=== PATIENT | male | born 1965 | race American Indian/Alaskan Native ===

== ENCOUNTER 2024-08-02 13:06 | Inpatient (IN) | payer MEDICARE, MEDICAID ==
[2024-08-02] MEDS ORDERED: Sodium Chloride 0.9% 10 ML Syringe FLUSH PRN (13:07)
[2024-08-02] MEDS: Sodium Chloride 0.9% 1,000 ML IV ONE (13:21)
[2024-08-02] MEDS: Ondansetron 4 MG/2 ML SDV IVPUSH ONE ×2 (13:21→14:04)
[2024-08-02 13:24] LABS: BASOPHILS PERCENT AUTO 0.2 % (0.0-1.0); EOSINOPHILS PERCENT AUTO 0.8 % (1.0-3.0); HEMATOCRIT 25.2 % (40.0-54.0); LYMPHOCYTES PERCENT AUTO 4.3 % (20.5-50.1); MEAN CORPUSCULAR HEMOGLOBIN 19.4 pg (27.0-34.0); MEAN CORPUSCULAR HGB CONC 27.8 g/dL (33.0-35.0); MONOCYTES PERCENT AUTO 2.8 % (2-8); NEUTROPHILS PERCENT AUTO 91.9 % (42.2-75.2); PLATELET COUNT,PLT 418 10^3/uL (150-450); WHITE BLOOD CELL COUNT,WBC 12.7 10^3/uL (5.0-10.0)
[2024-08-02 13:26] LABS: APPEARANCE,URINE TURBID (CLEAR); BILIRUBIN,URINE NEGATIVE (NEGATIVE); COLOR,URINE YELLOW (YELLOW); GLUCOSE,URINE NEGATIVE (NEGATIVE); KETONES,URINE 15 (NEGATIVE); LEUKOCYTE ESTERASE,URINE LARGE (NEGATIVE); NITRITE,URINE NEGATIVE (NEGATIVE); OCCULT BLOOD,URINE LARGE (NEGATIVE); PROTEIN,URINE >=300 (NEGATIVE); UROBILINOGEN,URINE 0.2 mg/dL (0.2-1.0)
[2024-08-02 13:33] LABS: WBC,URINE PACKED /HPF (0-5/HPF)
[2024-08-02 13:34] LABS: BACTERIA,URINE MODERATE /HPF (0-FEW/HPF); EPITHELIAL CELLS,URINE OCCASIONAL /HPF (NOT SEEN)
[2024-08-02 13:43] LABS: A/G RATIO 0.47; ALANINE AMINOTRANSFERASE,ALT 13 U/L (16-63); ALBUMIN 2.6 g/dL (3.4-5.0); ALKALINE PHOSPHATASE 112 U/L (46-116); ANION GAP 14.3 mEq/L (7-13); ASPARTATE AMNIOTRANSFERASE,AST 26 U/L (15-37); BILIRUBIN TOTAL 0.3 mg/dL (0.2-1.0); BLOOD UREA NITROGEN,BUN 31 mg/dL (7-18); BUN/CREATININE RATIO 11.6 (No establ ref range); C-REACTIVE PROTEIN 23.02 ng/dL (<=0.50); CARBON DIOXIDE,CO2 25 mmol/L (21-32); CHLORIDE,CL 100 mmol/L (98-107); CREATININE 2.67 mg/dL (0.70-1.30); ESTIMATED GFR 27 mL/min (>=60); GLUCOSE RANDOM 102 mg/dL (70-99); MAGNESIUM 1.3 mg/dL (1.8-2.4); POTASSIUM,K 4.3 mmol/L (3.5-5.1); PROTEIN TOTAL,TP 8.1 g/dL (6.4-8.2); SODIUM,NA 135 mmol/L (136-145)
[2024-08-02 14:04] LABS: LACTIC ACID 1.7 mmol/L (0.4-2.0)
[2024-08-02] MEDS: Ciprofloxacin in D5W 400 MG in Premix Bag 1 BAG IV ONE (14:35)
[2024-08-02] MEDS ORDERED: Acetaminophen 325 MG Tab PO PRN (15:19)
[2024-08-02] MEDS ORDERED: Ondansetron 4 MG/2 ML SDV IVPUSH PRN (15:19)
[2024-08-02] MEDS ORDERED: oxyCODONE 5 MG Tab PO PRN (15:19)
[2024-08-02] MEDS: Albuterol/Ipratropium 3.0-0.5 MG/3 ML Neb Soln NEB PRN (15:31)
[2024-08-02] MEDS: Sodium Chloride 0.9% 1,000 ML IV SCH (15:42)
[2024-08-02] MEDS ORDERED: Magnesium Hydroxide 400 MG/5 ML Susp 30 ML Cup PO PRN (15:50)
[2024-08-02] MEDS ORDERED: Calcium Carbonate 500 MG Tab.Chew PO PRN (15:50)
[2024-08-02] MEDS ORDERED: Sennosides/Docusate Sodium 50-8.6 MG Tab PO PRN (15:50)
[2024-08-02] MEDS ORDERED: Ondansetron 4 MG Tab.DIS PO PRN (15:50)
[2024-08-02] MEDS: Oxybutynin 5 MG Tab.ER PO SCH (16:31)
[2024-08-02] MEDS: Omeprazole 20 MG Cap.CR PO SCH (16:31)
[2024-08-02] MEDS: ClonazePAM 0.5 MG Tab PO SCH (16:31)
[2024-08-02] MEDS: Sodium Bicarbonate 650 MG Tab PO SCH (16:31)
[2024-08-02] MEDS: Calcium Polycarbophil 625 MG Tab PO SCH (20:38)
[2024-08-02] MEDS: atorvaSTATin 20 MG Tab PO SCH (20:39)
[2024-08-02] MEDS: Baclofen 10 MG Tab PO SCH (20:39)
[2024-08-02] MEDS: Metoclopramide 10 MG Tab PO SCH (20:40)
[2024-08-02] MEDS: traZODone 50 MG Tab PO SCH (20:41)
[2024-08-02] MEDS: Heparin Sodium 5,000 Units/ML Vial SUBCUT SCH (20:43)
[2024-08-03] MEDS: Levothyroxine 50 MCG Tab PO SCH (05:13)
[2024-08-03 06:34] LABS: BASOPHILS PERCENT AUTO 0.1 % (0.0-1.0); EOSINOPHILS PERCENT AUTO 0.7 % (1.0-3.0); HEMATOCRIT 26.3 % (40.0-54.0); HEMOGLOBIN 7.8 g/dL (14.0-18.0); LYMPHOCYTES PERCENT AUTO 10.4 % (20.5-50.1); MEAN CORPUSCULAR HEMOGLOBIN 21.3 pg (27.0-34.0); MEAN CORPUSCULAR HGB CONC 29.7 g/dL (33.0-35.0); MEAN CORPUSCULAR VOLUME 71.7 fL (80-100); MONOCYTES PERCENT AUTO 6.1 % (2-8); NEUTROPHILS PERCENT AUTO 82.7 % (42.2-75.2); PLATELET COUNT,PLT 358 10^3/uL (150-450); RED BLOOD CELL COUNT 3.67 10^6/uL (4.6-6.2); WHITE BLOOD CELL COUNT,WBC 8.4 10^3/uL (5.0-10.0)
[2024-08-03 06:51] LABS: ANION GAP 15.6 mEq/L (7-13); CALCIUM 8.7 mg/dL (8.5-10.1); CREATININE 2.12 mg/dL (0.70-1.30); EST CRCL DRUG DOSING (CG) 36.3 mL/min; POTASSIUM,K 3.6 mmol/L (3.5-5.1)
[2024-08-03] MEDS: Insulin Lispro 100 Units/ML 3 ML Vial SUBCUT SCH (08:24)
[2024-08-03] MEDS: Sodium Zirconium Cyclosilicate 5 GM Packet PO SCH (08:40)
[2024-08-03] MEDS: Cholecalciferol (Vitamin D3) 25 MCG Tab PO SCH (08:41)
[2024-08-03] MEDS: Aspirin 81 MG Tab.EC PO SCH (08:42)
[2024-08-03] MEDS: Saccharomyces Boulardii (Probiotic) 250 MG Cap PO SCH (08:42)
[2024-08-03] MEDS: Cyanocobalamin (Vitamin B12) 1,000 MCG Tab PO SCH (08:44)
[2024-08-03] MEDS: Ciprofloxacin in D5W 400 MG in Premix Bag 1 BAG IV SCH (13:29)
[2024-08-04 09:59] LABS: ANION GAP 12.6 mEq/L (7-13); CALCIUM 8.6 mg/dL (8.5-10.1); CREATININE 1.5 mg/dL (0.70-1.30); EST CRCL DRUG DOSING (CG) 51.3 mL/min; POTASSIUM,K 3.6 mmol/L (3.5-5.1)
[2024-08-04] MEDS: ceFAZolin 1 GM Vial IVPUSH SCH (14:01)
[2024-08-05 08:19] LABS: BASOPHILS PERCENT AUTO 0.2 % (0.0-1.0); EOSINOPHILS PERCENT AUTO 10.1 % (1.0-3.0); HEMATOCRIT 26.9 % (40.0-54.0); HEMOGLOBIN 7.8 g/dL (14.0-18.0); LYMPHOCYTES PERCENT AUTO 15.9 % (20.5-50.1); MEAN CORPUSCULAR VOLUME 72.5 fL (80-100); NEUTROPHILS PERCENT AUTO 65.8 % (42.2-75.2); PLATELET COUNT,PLT 386 10^3/uL (150-450); RED BLOOD CELL COUNT 3.71 10^6/uL (4.6-6.2); WHITE BLOOD CELL COUNT,WBC 4.8 10^3/uL (5.0-10.0)
[2024-08-05 08:24] LABS: ANION GAP 13.9 mEq/L (7-13); CALCIUM 8.7 mg/dL (8.5-10.1); CREATININE 1.6 mg/dL (0.70-1.30); EST CRCL DRUG DOSING (CG) 48.09 mL/min; MAGNESIUM 1.3 mg/dL (1.8-2.4); POTASSIUM,K 3.9 mmol/L (3.5-5.1)
[2024-08-05] MEDS: Magnesium Sulfate/Water Premix 2 GM in Premix Bag 1 BAG IV ONE (08:59)
[2024-08-05 11:50] VITALS: BP 154/78; PULSE 81
== END 2024-08-05 13:36 | DRG 698 ==
LOC: DL.ED 13:06 → DL.MS 14:03 → DL.ED 14:13
PROVIDERS: ADMIT Internal Medicine; ATTEND Internal Medicine
DX: T83.511A Infection and inflammatory reaction due to indwelling urethral catheter, initial encounter (principal); A41.59 Other Gram-negative sepsis; G82.20 Paraplegia, unspecified; N17.9 Acute kidney failure, unspecified; E11.9 Type 2 diabetes mellitus without complications; E87.29 Other acidosis; N39.0 Urinary tract infection, site not specified; N31.9 Neuromuscular dysfunction of bladder, unspecified; R53.81 Other malaise; F41.9 Anxiety disorder, unspecified; Z79.82 Long term (current) use of aspirin; F39 Unspecified mood [affective] disorder; Z79.899 Other long term (current) drug therapy; G43.909 Migraine, unspecified, not intractable, without status migrainosus; G47.00 Insomnia, unspecified; E66.9 Obesity, unspecified; K21.9 Gastro-esophageal reflux disease without esophagitis; D63.1 Anemia in chronic kidney disease; E78.00 Pure hypercholesterolemia, unspecified; E11.22 Type 2 diabetes mellitus with diabetic chronic kidney disease; N18.2 Chronic kidney disease, stage 2 (mild); E87.5 Hyperkalemia; E03.9 Hypothyroidism, unspecified; Z79.890 Hormone replacement therapy; Z93.3 Colostomy status; Z86.14 Personal history of Methicillin resistant Staphylococcus aureus infection; Z79.4 Long term (current) use of insulin; Z68.33 Body mass index [BMI] 33.0-33.9, adult; Z88.0 Allergy status to penicillin; Z88.2 Allergy status to sulfonamides; Z88.1 Allergy status to other antibiotic agents; Z88.8 Allergy status to other drugs, medicaments and biological substances; Y84.6 Urinary catheterization as the cause of abnormal reaction of the patient, or of later complication, without mention of misadventure at the time of the procedure; Y92.89 Other specified places as the place of occurrence of the external cause
CPT/HCPCS: 36415; 36430; 71045; 80048; 80053; 81001; 82947; 83605; 83735; 85025; 86140; 86850; 86900; 86901; 86920; 86922; 87086; 87088; 87186; 87428-QW; 94010; 94640; 94667; 96361; 96374; 99223; 99232; 99239; 99284; 99285-25; A9270-GY; J0690; J0744; J1644; J2405; J3475; J3490; J7030; J7620-GY; P9016

== ENCOUNTER 2024-08-11 13:38 | Emergency (ER) | payer MEDICARE, MEDICAID ==
[2024-08-11] MEDS: Albuterol/Ipratropium 3.0-0.5 MG/3 ML Neb Soln NEB ONE (14:11)
[2024-08-11] MEDS: Sodium Chloride 0.9% 1,000 ML IV ONE (14:18)
[2024-08-11 14:44] LABS: APPEARANCE,URINE CLOUDY (CLEAR); BILIRUBIN,URINE NEGATIVE (NEGATIVE); COLOR,URINE YELLOW (YELLOW); GLUCOSE,URINE NEGATIVE (NEGATIVE); KETONES,URINE 15 (NEGATIVE); LEUKOCYTE ESTERASE,URINE LARGE (NEGATIVE); NITRITE,URINE NEGATIVE (NEGATIVE); OCCULT BLOOD,URINE LARGE (NEGATIVE); PROTEIN,URINE >=300 (NEGATIVE); UROBILINOGEN,URINE 0.2 mg/dL (0.2-1.0)
[2024-08-11 15:03] LABS: BACTERIA,URINE MANY /HPF (0-FEW/HPF); EPITHELIAL CELLS,URINE FEW /HPF (NOT SEEN); RBC,URINE 20-30 /HPF (0-5); WBC,URINE >100 /HPF (0-5/HPF)
[2024-08-11 15:04] LABS: BASOPHILS PERCENT AUTO 0.1 % (0.0-1.0); EOSINOPHILS PERCENT AUTO 2.5 % (1.0-3.0); HEMATOCRIT 30.5 % (40.0-54.0); HEMOGLOBIN 8.9 g/dL (14.0-18.0); LYMPHOCYTES PERCENT AUTO 14.8 % (20.5-50.1); MEAN CORPUSCULAR HEMOGLOBIN 20.9 pg (27.0-34.0); MEAN CORPUSCULAR HGB CONC 29.2 g/dL (33.0-35.0); MEAN CORPUSCULAR VOLUME 71.6 fL (80-100); MONOCYTES PERCENT AUTO 6.1 % (2-8); NEUTROPHILS PERCENT AUTO 76.5 % (42.2-75.2); PLATELET COUNT,PLT 495 10^3/uL (150-450); RED BLOOD CELL COUNT 4.26 10^6/uL (4.6-6.2); WHITE BLOOD CELL COUNT,WBC 9.2 10^3/uL (5.0-10.0)
[2024-08-11 15:20] LABS: ALANINE AMINOTRANSFERASE,ALT 17 U/L (16-63); ALBUMIN 2.7 g/dL (3.4-5.0); ALKALINE PHOSPHATASE 122 U/L (46-116); ANION GAP 14.2 mEq/L (7-13); ASPARTATE AMNIOTRANSFERASE,AST 24 U/L (15-37); BILIRUBIN TOTAL 0.3 mg/dL (0.2-1.0); BLOOD UREA NITROGEN,BUN 21 mg/dL (7-18); BUN/CREATININE RATIO 10.8 (No establ ref range); CALCIUM 9.1 mg/dL (8.5-10.1); CARBON DIOXIDE,CO2 28 mmol/L (21-32); CHLORIDE,CL 100 mmol/L (98-107); CREATININE 1.94 mg/dL (0.70-1.30); GLUCOSE RANDOM 112 mg/dL (70-99); LACTIC ACID 1.7 mmol/L (0.4-2.0); LIPASE 20 U/L (16-77); MAGNESIUM 1.5 mg/dL (1.8-2.4); POTASSIUM,K 4.2 mmol/L (3.5-5.1); PROTEIN TOTAL,TP 8.5 g/dL (6.4-8.2); SODIUM,NA 138 mmol/L (136-145)
[2024-08-11 15:27] LABS: A/G RATIO 0.47; ESTIMATED GFR 39 mL/min (>=60)
[2024-08-11 15:33] LABS: B-TYPE NATRIURETIC PEPTIDE,BNP 12 pg/ml (0-100)
[2024-08-11] MEDS: cefTRIAXone 1 GM Vial IVPUSH ONE (16:28)
[2024-08-11] MEDS: Magnesium Sulfate/Water Premix 2 GM in Premix Bag 1 BAG IV ONE (16:31)
[2024-08-11 16:50] VITALS: BP 95/58; PULSE 81
== END 2024-08-11 17:25 | disposition home or self-care (01) ==
LOC: DL.ED 13:38
DX: I95.9 Hypotension, unspecified (principal); T83.510A Infection and inflammatory reaction due to cystostomy catheter, initial encounter; N39.0 Urinary tract infection, site not specified; E78.00 Pure hypercholesterolemia, unspecified; K21.9 Gastro-esophageal reflux disease without esophagitis; E03.9 Hypothyroidism, unspecified; E11.9 Type 2 diabetes mellitus without complications; Z79.899 Other long term (current) drug therapy; Z79.4 Long term (current) use of insulin; Z79.82 Long term (current) use of aspirin; Z88.8 Allergy status to other drugs, medicaments and biological substances; Z88.2 Allergy status to sulfonamides; Z88.0 Allergy status to penicillin
CPT/HCPCS: 36415; 71045; 80053; 81001; 83605; 83690; 83735; 83880; 84484; 85025; 87086; 87428; 93005; 96361; 96365; 96375; 99285; J0696; J3475; J7030; 93010; 99284; J7620-GY

== ENCOUNTER 2024-09-20 14:40 | Emergency (ER) | payer MEDICARE, MEDICAID ==
[2024-09-20] MEDS ORDERED: Sodium Chloride 0.9% 10 ML Syringe FLUSH PRN (14:49)
[2024-09-20 15:08] LABS: BASOPHILS PERCENT AUTO 0.5 % (0.0-1.0); EOSINOPHILS PERCENT AUTO 5.3 % (1.0-3.0); HEMATOCRIT 23.4 % (40.0-54.0); LYMPHOCYTES PERCENT AUTO 17.4 % (20.5-50.1); MEAN CORPUSCULAR HEMOGLOBIN 21.2 pg (27.0-34.0); MEAN CORPUSCULAR HGB CONC 28.2 g/dL (33.0-35.0); MONOCYTES PERCENT AUTO 5.4 % (2-8); NEUTROPHILS PERCENT AUTO 71.4 % (42.2-75.2); PLATELET COUNT,PLT 483 10^3/uL (150-450); RED BLOOD CELL COUNT 3.12 10^6/uL (4.6-6.2); WHITE BLOOD CELL COUNT,WBC 6.6 10^3/uL (5.0-10.0)
[2024-09-20 15:18] LABS: HEMOGLOBIN 6.6 g/dL (14.0-18.0)
[2024-09-20] MEDS: Sodium Chloride 0.9% 1,000 ML IV ONE (15:25)
[2024-09-20 15:27] LABS: ANION GAP 17.4 mEq/L (7-13); BILIRUBIN TOTAL 0.3 mg/dL (0.2-1.0); BUN/CREATININE RATIO 11.7 (No establ ref range); C-REACTIVE PROTEIN 4.24 ng/dL (<=0.50); CALCIUM 9.1 mg/dL (8.5-10.1); CREATININE 1.79 mg/dL (0.70-1.30); EST CRCL DRUG DOSING (CG) 42.99 mL/min; MAGNESIUM 1.7 mg/dL (1.8-2.4); POTASSIUM,K 4.4 mmol/L (3.5-5.1); PROTEIN TOTAL,TP 8.4 g/dL (6.4-8.2)
[2024-09-20 15:33] LABS: LACTIC ACID 1.9 mmol/L (0.4-2.0)
[2024-09-20 15:36] LABS: A/G RATIO 0.56
[2024-09-20] MEDS ORDERED: Sodium Chloride 0.9% 1,000 ML IV ONE (15:54)
[2024-09-20 16:35] LABS: APPEARANCE,URINE TURBID (CLEAR); BILIRUBIN,URINE NEGATIVE (NEGATIVE); COLOR,URINE YELLOW (YELLOW); GLUCOSE,URINE NEGATIVE (NEGATIVE); KETONES,URINE NEGATIVE (NEGATIVE); LEUKOCYTE ESTERASE,URINE LARGE (NEGATIVE); NITRITE,URINE NEGATIVE (NEGATIVE); OCCULT BLOOD,URINE LARGE (NEGATIVE); PH,URINE 7.5 (5.0-9.0); PROTEIN,URINE 100 (NEGATIVE); UROBILINOGEN,URINE 0.2 mg/dL (0.2-1.0)
[2024-09-20 17:05] LABS: EPITHELIAL CELLS,URINE FEW /HPF (NOT SEEN); WBC,URINE PACKED /HPF (0-5/HPF)
[2024-09-20 17:06] LABS: BACTERIA,URINE FEW /HPF (0-FEW/HPF); MUCUS,URINE FEW /LPF (NOT SEEN)
[2024-09-20 17:15] VITALS: PULSE 101
[2024-09-20 17:30] VITALS: BP 90/50
[2024-09-20 19:53] LABS: BASOPHILS PERCENT AUTO 0.5 % (0.0-1.0); EOSINOPHILS PERCENT AUTO 5.3 % (1.0-3.0); HEMATOCRIT 23.6 % (40.0-54.0); MEAN CORPUSCULAR HGB CONC 29.2 g/dL (33.0-35.0); MEAN CORPUSCULAR VOLUME 78.7 fL (80-100); MONOCYTES PERCENT AUTO 7.8 % (2-8); NEUTROPHILS PERCENT AUTO 67.4 % (42.2-75.2); PLATELET COUNT,PLT 361 10^3/uL (150-450); WHITE BLOOD CELL COUNT,WBC 5.6 10^3/uL (5.0-10.0)
[2024-09-20 20:07] LABS: HEMOGLOBIN 6.9 g/dL (14.0-18.0)
[2024-09-20] MEDS ORDERED: Ciprofloxacin 500 MG Tab PO ONE (21:49)
[2024-09-21] MEDS: Take Home: Ciprofloxacin HCl 500 MG, 6 Tab Pack PO ONE (13:34)
== END 2024-09-21 00:19 | disposition home or self-care (01) ==
LOC: DL.ED 14:40
DX: D50.9 Iron deficiency anemia, unspecified (principal); T83.511A Infection and inflammatory reaction due to indwelling urethral catheter, initial encounter; N39.0 Urinary tract infection, site not specified; E78.00 Pure hypercholesterolemia, unspecified; K21.9 Gastro-esophageal reflux disease without esophagitis; E11.9 Type 2 diabetes mellitus without complications; E03.9 Hypothyroidism, unspecified; Z88.0 Allergy status to penicillin; Z88.2 Allergy status to sulfonamides; Z88.8 Allergy status to other drugs, medicaments and biological substances; Z79.4 Long term (current) use of insulin; Z79.84 Long term (current) use of oral hypoglycemic drugs; Z79.82 Long term (current) use of aspirin; Z79.899 Other long term (current) drug therapy; Z79.890 Hormone replacement therapy
CPT/HCPCS: 36415; 36430; 80053; 81001; 83605; 83735; 85025; 86140; 86850; 86900; 86901; 86920; 86922; 87040; 87086; 87088; 87186; 96360; 99284; A9270; J7030; P9016

== ENCOUNTER 2024-11-14 16:22 | Emergency (ER) | payer MEDICARE, MEDICAID ==
[2024-11-14] MEDS: Alteplase 2 MG Vial IVPUSH ONE (19:49)
[2024-11-14 21:14] VITALS: BP 125/65; PULSE 91
== END 2024-11-14 21:17 ==
LOC: DL.ED 16:22
DX: T82.898A Other specified complication of vascular prosthetic devices, implants and grafts, initial encounter (principal); E11.622 Type 2 diabetes mellitus with other skin ulcer; K21.9 Gastro-esophageal reflux disease without esophagitis; E78.00 Pure hypercholesterolemia, unspecified; E03.9 Hypothyroidism, unspecified; E66.9 Obesity, unspecified; Z88.8 Allergy status to other drugs, medicaments and biological substances; Z88.0 Allergy status to penicillin; Z88.2 Allergy status to sulfonamides; Z88.1 Allergy status to other antibiotic agents; Z79.82 Long term (current) use of aspirin; Z68.30 Body mass index [BMI] 30.0-30.9, adult; Z87.891 Personal history of nicotine dependence
CPT/HCPCS: 71045; 96374; 99284; J2997; 99283

== ENCOUNTER 2024-12-04 20:39 | Inpatient (IN) | payer MEDICARE, MEDICAID ==
[2024-12-04] MEDS: Sodium Chloride 0.9% 1,000 ML IV ONE (21:26)
[2024-12-04 21:28] LABS: BASOPHILS PERCENT AUTO 0.2 % (0.0-1.0); EOSINOPHILS PERCENT AUTO 0.7 % (1.0-3.0); HEMATOCRIT 25.9 % (40.0-54.0); HEMOGLOBIN 7.4 g/dL (14.0-18.0); LYMPHOCYTES PERCENT AUTO 4.4 % (20.5-50.1); MEAN CORPUSCULAR HGB CONC 28.6 g/dL (33.0-35.0); MEAN CORPUSCULAR VOLUME 77.1 fL (80-100); MONOCYTES PERCENT AUTO 4.2 % (2-8); NEUTROPHILS PERCENT AUTO 90.5 % (42.2-75.2); PLATELET COUNT,PLT 676 10^3/uL (150-450); RED BLOOD CELL COUNT 3.36 10^6/uL (4.6-6.2); WHITE BLOOD CELL COUNT,WBC 16.5 10^3/uL (5.0-10.0)
[2024-12-04 21:33] LABS: APPEARANCE,URINE TURBID (CLEAR); COLOR,URINE STRAW (YELLOW)
[2024-12-04 21:34] LABS: BILIRUBIN,URINE NEGATIVE (NEGATIVE); GLUCOSE,URINE NEGATIVE (NEGATIVE); KETONES,URINE NEGATIVE (NEGATIVE); PROTEIN,URINE 100 (NEGATIVE)
[2024-12-04 21:35] LABS: LEUKOCYTE ESTERASE,URINE LARGE (NEGATIVE); NITRITE,URINE NEGATIVE (NEGATIVE); OCCULT BLOOD,URINE LARGE (NEGATIVE); UROBILINOGEN,URINE 0.2 mg/dL (0.2-1.0)
[2024-12-04 21:39] LABS: BACTERIA,URINE MANY /HPF (0-FEW/HPF); EPITHELIAL CELLS,URINE RARE /HPF (NOT SEEN); MUCUS,URINE MODERATE /LPF (NOT SEEN); WBC,URINE >100 /HPF (0-5/HPF)
[2024-12-04 21:48] LABS: ALANINE AMINOTRANSFERASE,ALT 6 U/L (16-63); ALBUMIN 2.2 g/dL (3.4-5.0); ALKALINE PHOSPHATASE 111 U/L (46-116); ANION GAP 16.9 mEq/L (7-13); ASPARTATE AMNIOTRANSFERASE,AST 10 U/L (15-37); BILIRUBIN TOTAL 0.3 mg/dL (0.2-1.0); BLOOD UREA NITROGEN,BUN 22 mg/dL (7-18); C-REACTIVE PROTEIN 16.09 ng/dL (<=0.50); CALCIUM 8.4 mg/dL (8.5-10.1); CARBON DIOXIDE,CO2 24 mmol/L (21-32); CHLORIDE,CL 102 mmol/L (98-107); GLUCOSE RANDOM 118 mg/dL (70-99); MAGNESIUM 1.2 mg/dL (1.8-2.4); POTASSIUM,K 3.9 mmol/L (3.5-5.1); PROTEIN TOTAL,TP 8.6 g/dL (6.4-8.2); SODIUM,NA 139 mmol/L (136-145)
[2024-12-04 21:49] LABS: A/G RATIO 0.34; ESTIMATED GFR 33 mL/min (>=60)
[2024-12-04 21:56] LABS: LACTIC ACID 4.3 mmol/L (0.4-2.0)
[2024-12-04] MEDS: VANCOmycin 1.25 GM in Sodium Chloride 0.9% 250 ML IV ONE (22:10)
[2024-12-04] MEDS: Magnesium Sulf/Wat 2 GM/50 mL 2 GM in Premix Bag 1 BAG IV ONE (22:10)
[2024-12-04] MEDS: Cefepime 2 GM Vial IVPUSH ONE (22:11)
[2024-12-04] MEDS ORDERED: HYDROmorphone 0.5 MG/0.5 ML Syringe IVPUSH PRN (23:07)
[2024-12-04] MEDS ORDERED: Ondansetron 4 MG/2 ML SDV IVPUSH PRN (23:07)
[2024-12-04] MEDS ORDERED: Naloxone 2 MG/2 ML Syringe IVPUSH PRN (23:07)
[2024-12-04] MEDS ORDERED: Acetaminophen 325 MG Tab PO PRN (23:07)
[2024-12-04] MEDS ORDERED: 50% Dextrose in Water 50 ML Syringe IVPUSH PRN (23:25)
[2024-12-04] MEDS ORDERED: Glucagon,Human Recombinant 1 MG Vial IM PRN (23:25)
[2024-12-04] MEDS ORDERED: Lactated Ringers 1,000 ML IV SCH (23:30)
[2024-12-05] MEDS: Midodrine 5 MG Tab PO ONE ×2 (00:05→09:11)
[2024-12-05] MEDS: diphenhydrAMINE 50 MG/ML SDV IVPUSH PRN (00:11)
[2024-12-05] MEDS: oxyCODONE 5 MG Tab PO PRN (00:11)
[2024-12-05] MEDS: traZODone 50 MG Tab PO PRN (00:11)
[2024-12-05] MEDS: Hydrocortisone 1% Crm 30 GM Tube TOP PRN (00:11)
[2024-12-05] MEDS: Hydrocortisone Sodium Succinate 100 MG/2 ML SDV IVPUSH SCH (00:11)
[2024-12-05 00:24] LABS: LACTIC ACID 2.3 mmol/L (0.4-2.0)
[2024-12-05] MEDS: Sodium Chloride 0.9% 1,000 ML IV ONE (02:25)
[2024-12-05 06:24] LABS: BASOPHILS PERCENT AUTO 0.1 % (0.0-1.0); HEMATOCRIT 24.2 % (40.0-54.0); LYMPHOCYTES PERCENT AUTO 2.1 % (20.5-50.1); MEAN CORPUSCULAR HEMOGLOBIN 21.9 pg (27.0-34.0); MEAN CORPUSCULAR HGB CONC 28.1 g/dL (33.0-35.0); MEAN CORPUSCULAR VOLUME 77.8 fL (80-100); MONOCYTES PERCENT AUTO 1.4 % (2-8); NEUTROPHILS PERCENT AUTO 96.4 % (42.2-75.2); PLATELET COUNT,PLT 637 10^3/uL (150-450); RED BLOOD CELL COUNT 3.11 10^6/uL (4.6-6.2); WHITE BLOOD CELL COUNT,WBC 16.6 10^3/uL (5.0-10.0)
[2024-12-05] MEDS: Omeprazole 20 MG Cap.CR PO SCH (06:25)
[2024-12-05] MEDS: Cefepime 1 GM Vial IVPUSH SCH (06:25)
[2024-12-05 06:55] LABS: ALBUMIN 2.1 g/dL (3.4-5.0); ANION GAP 14.8 mEq/L (7-13); BILIRUBIN TOTAL 0.2 mg/dL (0.2-1.0); BUN/CREATININE RATIO 10.8 (No establ ref range); C-REACTIVE PROTEIN 15.44 ng/dL (<=0.50); CALCIUM 8.3 mg/dL (8.5-10.1); CREATININE 2.04 mg/dL (0.70-1.30); EST CRCL DRUG DOSING (CG) 37.25 mL/min; MAGNESIUM 1.8 mg/dL (1.8-2.4); POTASSIUM,K 3.8 mmol/L (3.5-5.1); PROTEIN TOTAL,TP 8.3 g/dL (6.4-8.2)
[2024-12-05 06:56] LABS: A/G RATIO 0.34
[2024-12-05 07:44] LABS: HEMOGLOBIN 6.8 g/dL (14.0-18.0)
[2024-12-05] MEDS: Insulin Lispro 100 Units/ML 3 ML Vial SUBCUT SCH (08:51)
[2024-12-05] MEDS ORDERED: Midodrine 5 MG Tab PO SCH (09:00)
[2024-12-05] MEDS: ClonazePAM 0.5 MG Tab PO SCH (09:11)
[2024-12-05] MEDS: Enoxaparin 40 MG/0.4 ML Syringe SUBCUT SCH (09:11)
[2024-12-05] MEDS: Baclofen 10 MG Tab PO SCH (09:11)
[2024-12-05] MEDS: Metoclopramide 10 MG Tab PO SCH (09:11)
[2024-12-05] MEDS: Sodium Bicarbonate 650 MG Tab PO SCH (09:12)
[2024-12-05] MEDS: Saccharomyces Boulardii (Probiotic) 250 MG Cap PO SCH (09:12)
[2024-12-05] MEDS ORDERED: Nitroglycerin 0.4 MG Tab.SL SL PRN (09:50)
[2024-12-05] MEDS ORDERED: Calcium Carbonate 500 MG Tab.Chew PO PRN (09:50)
[2024-12-05] MEDS ORDERED: guaiFENesin 100 MG/5 ML Soln 5 ML UD Cup PO PRN (09:50)
[2024-12-05] MEDS ORDERED: Promethazine 25 MG Tab PO PRN (09:50)
[2024-12-05] MEDS ORDERED: Magnesium Hydroxide 400 MG/5 ML Susp 30 ML Cup PO PRN (09:50)
[2024-12-05] MEDS ORDERED: Polyvinyl Alcohol 1.4% Ophth Soln 15 ML Bottle EYEBOTH PRN (10:00)
[2024-12-05] MEDS: Acetaminophen 325 MG Tab PO ONE (10:57)
[2024-12-05] MEDS: diphenhydrAMINE 50 MG/ML SDV IV ONE (10:57)
[2024-12-05 17:08] LABS: HEMOGLOBIN 8.5 g/dL (14.0-18.0)
[2024-12-05] MEDS: Cefepime 2 GM Vial IV SCH (17:12)
[2024-12-05] MEDS ORDERED: Metoprolol Tartrate 5 MG/5 ML SDV IVPUSH PRN (18:15)
[2024-12-05] MEDS: Midodrine 5 MG Tab PO SCH (20:37)
[2024-12-05] MEDS: Multivitamins with Iron/Calcium/Folic Acid/Minerals Tab PO SCH (21:36)
[2024-12-05] MEDS: atorvaSTATin 20 MG Tab PO SCH (21:36)
[2024-12-05] MEDS: VANCOmycin 750 MG in Sodium Chloride 0.9% 250 ML IV SCH (21:43)
[2024-12-05] MEDS: Miconazole 2% Crm 14 GM Tube TOP SCH (23:13)
[2024-12-06] MEDS: Levothyroxine 50 MCG Tab PO SCH (05:44)
[2024-12-06 06:31] LABS: BASOPHILS PERCENT AUTO 0.1 % (0.0-1.0); HEMATOCRIT 27.4 % (40.0-54.0); HEMOGLOBIN 8.1 g/dL (14.0-18.0); LYMPHOCYTES PERCENT AUTO 4.7 % (20.5-50.1); MEAN CORPUSCULAR HEMOGLOBIN 23.1 pg (27.0-34.0); MEAN CORPUSCULAR HGB CONC 29.6 g/dL (33.0-35.0); MEAN CORPUSCULAR VOLUME 78.3 fL (80-100); MONOCYTES PERCENT AUTO 4.4 % (2-8); NEUTROPHILS PERCENT AUTO 90.8 % (42.2-75.2); PLATELET COUNT,PLT 704 10^3/uL (150-450); WHITE BLOOD CELL COUNT,WBC 14.1 10^3/uL (5.0-10.0)
[2024-12-06 06:54] LABS: ALBUMIN 2.2 g/dL (3.4-5.0); ANION GAP 13.1 mEq/L (7-13); BILIRUBIN TOTAL 0.3 mg/dL (0.2-1.0); BUN/CREATININE RATIO 16.2 (No establ ref range); C-REACTIVE PROTEIN 8.39 ng/dL (<=0.50); CALCIUM 8.8 mg/dL (8.5-10.1); CREATININE 1.67 mg/dL (0.70-1.30); EST CRCL DRUG DOSING (CG) 45.51 mL/min; MAGNESIUM 1.8 mg/dL (1.8-2.4); POTASSIUM,K 4.1 mmol/L (3.5-5.1); PROTEIN TOTAL,TP 8.3 g/dL (6.4-8.2)
[2024-12-06 06:56] LABS: A/G RATIO 0.36
[2024-12-06] MEDS ORDERED: Midodrine 5 MG Tab PO PRN (08:22)
[2024-12-06] MEDS ORDERED: Aspirin 300 MG Supp RECTAL SCH (09:00)
[2024-12-06] MEDS: Cyanocobalamin (Vitamin B12) 1,000 MCG Tab PO SCH (10:54)
[2024-12-06] MEDS: Cholecalciferol (Vitamin D3) 25 MCG Tab PO SCH (10:55)
[2024-12-06] MEDS: Oxybutynin 5 MG Tab.ER PO SCH (10:56)
[2024-12-06] MEDS: Aspirin 81 MG Tab.EC PO SCH (10:56)
[2024-12-06] MEDS: Sodium Zirconium Cyclosilicate 5 GM Packet PO SCH (11:07)
[2024-12-07 06:26] LABS: HEMATOCRIT 26.2 % (40.0-54.0); HEMOGLOBIN 7.8 g/dL (14.0-18.0); MEAN CORPUSCULAR HEMOGLOBIN 23.4 pg (27.0-34.0); MEAN CORPUSCULAR HGB CONC 29.8 g/dL (33.0-35.0); MEAN CORPUSCULAR VOLUME 78.4 fL (80-100); PLATELET COUNT,PLT 647 10^3/uL (150-450); RED BLOOD CELL COUNT 3.34 10^6/uL (4.6-6.2); WHITE BLOOD CELL COUNT,WBC 7.7 10^3/uL (5.0-10.0)
[2024-12-07 06:40] LABS: NEUTROPHILS PERCENT AUTO 70.7 % (42.2-75.2)
[2024-12-07 06:41] LABS: BASOPHILS PERCENT AUTO 0.4 % (0.0-1.0); EOSINOPHILS PERCENT AUTO 1.4 % (1.0-3.0); LYMPHOCYTES PERCENT AUTO 19.9 % (20.5-50.1); MONOCYTES PERCENT AUTO 7.6 % (2-8)
[2024-12-07 06:55] LABS: EOSINOPHILS PERCENT MAN 2 % (1-3); LYMPHOCYTES PERCENT MAN 14 % (20-50); MONOCYTES PERCENT MAN 9 % (2-8); SEG NEUTROPHILS PERCENT MAN 75 % (42-75)
[2024-12-07 06:56] LABS: ANION GAP 13.3 mEq/L (7-13); BILIRUBIN TOTAL 0.2 mg/dL (0.2-1.0); BUN/CREATININE RATIO 18.3 (No establ ref range); C-REACTIVE PROTEIN 2.63 ng/dL (<=0.50); CALCIUM 8.4 mg/dL (8.5-10.1); CREATININE 1.53 mg/dL (0.70-1.30); EST CRCL DRUG DOSING (CG) 49.67 mL/min; HYPOCHROMASIA 1+ SLIGHT; MAGNESIUM 1.6 mg/dL (1.8-2.4); POTASSIUM,K 3.3 mmol/L (3.5-5.1); PROTEIN TOTAL,TP 7.3 g/dL (6.4-8.2)
[2024-12-07 06:57] LABS: A/G RATIO 0.38
[2024-12-07] MEDS: Potassium Chloride 10 MEQ Tab.ER PO ONE ×2 (09:36→17:23)
[2024-12-07] MEDS: Magnesium Sulf/Wat 2 GM/50 mL 2 GM in Premix Bag 1 BAG IV ONE (09:39)
[2024-12-07] MEDS: VANCOmycin 1 GM in Sodium Chloride 0.9% 250 ML IV SCH (21:50)
[2024-12-08] MEDS: hydrALAZINE 20 MG/ML SDV IVPUSH PRN (00:20)
[2024-12-08 06:31] LABS: BASOPHILS PERCENT AUTO 0.3 % (0.0-1.0); EOSINOPHILS PERCENT AUTO 4.5 % (1.0-3.0); HEMATOCRIT 28.1 % (40.0-54.0); HEMOGLOBIN 8.3 g/dL (14.0-18.0); LYMPHOCYTES PERCENT AUTO 11.7 % (20.5-50.1); MEAN CORPUSCULAR HEMOGLOBIN 23.1 pg (27.0-34.0); MEAN CORPUSCULAR HGB CONC 29.5 g/dL (33.0-35.0); MEAN CORPUSCULAR VOLUME 78.3 fL (80-100); MONOCYTES PERCENT AUTO 5.8 % (2-8); NEUTROPHILS PERCENT AUTO 77.7 % (42.2-75.2); PLATELET COUNT,PLT 689 10^3/uL (150-450); RED BLOOD CELL COUNT 3.59 10^6/uL (4.6-6.2); WHITE BLOOD CELL COUNT,WBC 9.8 10^3/uL (5.0-10.0)
[2024-12-08 06:49] LABS: ALBUMIN 2.1 g/dL (3.4-5.0); ANION GAP 13.8 mEq/L (7-13); BILIRUBIN TOTAL 0.2 mg/dL (0.2-1.0); BUN/CREATININE RATIO 20.9 (No establ ref range); C-REACTIVE PROTEIN 1.78 ng/dL (<=0.50); CALCIUM 8.8 mg/dL (8.5-10.1); CREATININE 1.39 mg/dL (0.70-1.30); EST CRCL DRUG DOSING (CG) 54.68 mL/min; MAGNESIUM 1.8 mg/dL (1.8-2.4); POTASSIUM,K 4.8 mmol/L (3.5-5.1); PROTEIN TOTAL,TP 7.5 g/dL (6.4-8.2)
[2024-12-08 06:53] LABS: A/G RATIO 0.39
[2024-12-08] MEDS: Potassium Chloride 10 MEQ Tab.ER PO SCH (08:44)
[2024-12-08] MEDS: Magnesium Oxide 400 MG Tab PO SCH (17:30)
[2024-12-08] MEDS: Magnesium Sulf/Wat 2 GM/50 mL 2 GM in Premix Bag 1 BAG IV SCH (19:46)
[2024-12-08] MEDS: Ciprofloxacin 500 MG Tab PO SCH (21:35)
[2024-12-09 06:59] LABS: CREATININE 1.25 mg/dL (0.70-1.30); EST CRCL DRUG DOSING (CG) 60.8 mL/min; VANCOMYCIN RANDOM 16.3 ug/mL (No Normal Range)
[2024-12-09 11:33] VITALS: BP 117/68; PULSE 105
== END 2024-12-09 13:35 | disposition other institution (70) | DRG 698 ==
LOC: DL.ED 20:39 → DL.MS 21:58
PROVIDERS: ADMIT Internal Medicine; ATTEND Internal Medicine
PROC: 3E03329 Introduction of Other Anti-infective into Peripheral Vein, Percutaneous Approach (ICD-10-PCS; principal; 2024-12-04)
PROC: 30233N1 Transfusion of Nonautologous Red Blood Cells into Peripheral Vein, Percutaneous Approach (ICD-10-PCS; principal; 2024-12-04)
DX: T83.510A Infection and inflammatory reaction due to cystostomy catheter, initial encounter (principal); A41.9 Sepsis, unspecified organism; L89.154 Pressure ulcer of sacral region, stage 4; R65.20 Severe sepsis without septic shock; J96.00 Acute respiratory failure, unspecified whether with hypoxia or hypercapnia; N13.30 Unspecified hydronephrosis; E11.9 Type 2 diabetes mellitus without complications; N17.9 Acute kidney failure, unspecified; Z79.82 Long term (current) use of aspirin; G82.20 Paraplegia, unspecified; F11.20 Opioid dependence, uncomplicated; G93.40 Encephalopathy, unspecified; N39.0 Urinary tract infection, site not specified; E44.0 Moderate protein-calorie malnutrition; I25.10 Atherosclerotic heart disease of native coronary artery without angina pectoris; T14.8XXS Other injury of unspecified body region, sequela; N18.30 Chronic kidney disease, stage 3 unspecified; D63.8 Anemia in other chronic diseases classified elsewhere; H04.129 Dry eye syndrome of unspecified lacrimal gland; E66.9 Obesity, unspecified; E83.42 Hypomagnesemia; E53.8 Deficiency of other specified B group vitamins; E88.09 Other disorders of plasma-protein metabolism, not elsewhere classified; F39 Unspecified mood [affective] disorder; G43.909 Migraine, unspecified, not intractable, without status migrainosus; E78.00 Pure hypercholesterolemia, unspecified; B96.5 Pseudomonas (aeruginosa) (mallei) (pseudomallei) as the cause of diseases classified elsewhere; E11.65 Type 2 diabetes mellitus with hyperglycemia; F41.9 Anxiety disorder, unspecified; Z68.24 Body mass index [BMI] 24.0-24.9, adult; K21.9 Gastro-esophageal reflux disease without esophagitis; H54.7 Unspecified visual loss; E03.9 Hypothyroidism, unspecified; Z79.4 Long term (current) use of insulin; Z79.899 Other long term (current) drug therapy; Z79.01 Long term (current) use of anticoagulants; Z88.8 Allergy status to other drugs, medicaments and biological substances; Z88.0 Allergy status to penicillin; Z98.890 Other specified postprocedural states; Z88.2 Allergy status to sulfonamides; Z89.611 Acquired absence of right leg above knee; Z95.5 Presence of coronary angioplasty implant and graft
CPT/HCPCS: 36415; 36430; 51702; 80053; 80202; 81001; 82533; 82565; 82947; 83605; 83735; 84145; 85014; 85018; 85025; 86140; 86850; 86900; 86901; 86920; 86922; 87040; 87086; 87088; 87186; 96360; 99285; 99285-25; A9270-GY; J0360; J0692; J1200; J1650; J1720; J1815-GY; J3370; J3371; J3475; J3490; J7030; J7050; P9016

== ENCOUNTER 2025-01-21 17:27 | Emergency (ER) | payer MEDICARE, MEDICAID ==
[2025-01-21] MEDS: Silver Nitrate Applicator Each TOP ONE (17:53)
[2025-01-21] MEDS: Silver Nitrate Applicator Each ONE (17:54)
[2025-01-21 18:12] VITALS: BP 133/85; PULSE 84
== END 2025-01-21 18:59 ==
LOC: DL.ED 17:27
DX: L98.0 Pyogenic granuloma (principal); E11.22 Type 2 diabetes mellitus with diabetic chronic kidney disease; E03.9 Hypothyroidism, unspecified; E78.00 Pure hypercholesterolemia, unspecified; K21.9 Gastro-esophageal reflux disease without esophagitis; N18.9 Chronic kidney disease, unspecified; Z88.1 Allergy status to other antibiotic agents; Z88.8 Allergy status to other drugs, medicaments and biological substances; Z88.0 Allergy status to penicillin; Z88.2 Allergy status to sulfonamides; Z79.899 Other long term (current) drug therapy; Z79.82 Long term (current) use of aspirin; Z79.890 Hormone replacement therapy; Z79.4 Long term (current) use of insulin; Z79.02 Long term (current) use of antithrombotics/antiplatelets; Z79.84 Long term (current) use of oral hypoglycemic drugs
CPT/HCPCS: 99284

== ENCOUNTER 2025-03-30 00:56 | Inpatient (IN) | payer MEDICARE, MEDICAID ==
[2025-03-30 01:50] LABS: BASOPHILS PERCENT AUTO 0.2 % (0.0-1.0); EOSINOPHILS PERCENT AUTO 5.2 % (1.0-3.0); LYMPHOCYTES PERCENT AUTO 13.4 % (20.5-50.1); MONOCYTES PERCENT AUTO 6.9 % (2-8); NEUTROPHILS PERCENT AUTO 74.3 % (42.2-75.2); PLATELET COUNT,PLT 628 10^3/uL (150-450); RED BLOOD CELL COUNT 4.00 10^6/uL (4.6-6.2); WHITE BLOOD CELL COUNT,WBC 9.4 10^3/uL (5.0-10.0)
[2025-03-30 01:56] LABS: APPEARANCE,URINE CLOUDY (CLEAR); GLUCOSE,URINE NEGATIVE (NEGATIVE); OCCULT BLOOD,URINE LARGE (NEGATIVE)
[2025-03-30 02:12] LABS: A/G RATIO 0.38; ALANINE AMINOTRANSFERASE,ALT 20 U/L (16-63); ASPARTATE AMNIOTRANSFERASE,AST 23 U/L (15-37); BILIRUBIN TOTAL 0.4 mg/dL (0.2-1.0); BLOOD UREA NITROGEN,BUN 44 mg/dL (7-18); CARBON DIOXIDE,CO2 26 mmol/L (21-32); CHLORIDE,CL 104 mmol/L (98-107); CREATININE 2.43 mg/dL (0.70-1.30); EST CRCL DRUG DOSING (CG) 31.28 mL/min; ESTIMATED GFR 30 mL/min (>=60); GLUCOSE RANDOM 105 mg/dL (70-99); POTASSIUM,K 5.2 mmol/L (3.5-5.1); PROTEIN TOTAL,TP 9.4 g/dL (6.4-8.2); SODIUM,NA 138 mmol/L (136-145)
[2025-03-30 02:15] LABS: LACTIC ACID 1.1 mmol/L (0.4-2.0)
[2025-03-30 02:21] LABS: EPITHELIAL CELLS,URINE FEW /HPF (NOT SEEN)
[2025-03-30] MEDS ORDERED: 50% Dextrose in Water 50 ML Syringe IVPUSH PRN (04:41)
[2025-03-30] MEDS: Meropenem 1 GM SDV IVPUSH SCH ×2 (05:08→17:25)
[2025-03-30] MEDS: Heparin Sodium 5,000 Units/ML Vial SUBCUT SCH (05:08)
[2025-03-30 06:29] LABS: BASOPHILS PERCENT AUTO 0.5 % (0.0-1.0); EOSINOPHILS PERCENT AUTO 8.3 % (1.0-3.0); LYMPHOCYTES PERCENT AUTO 21.2 % (20.5-50.1); MONOCYTES PERCENT AUTO 9.0 % (2-8); NEUTROPHILS PERCENT AUTO 61.0 % (42.2-75.2); PLATELET COUNT,PLT 532 10^3/uL (150-450); RED BLOOD CELL COUNT 3.47 10^6/uL (4.6-6.2); WHITE BLOOD CELL COUNT,WBC 6.6 10^3/uL (5.0-10.0)
[2025-03-30 06:59] LABS: ALANINE AMINOTRANSFERASE,ALT 14.0 U/L (16-63); ASPARTATE AMNIOTRANSFERASE,AST 10.0 U/L (15-37); BILIRUBIN DIRECT 0.1 mg/dL (0.0-0.2); BILIRUBIN INDIRECT 0.2; BILIRUBIN TOTAL 0.3 mg/dL (0.2-1.0); BLOOD UREA NITROGEN,BUN 37.0 mg/dL (7-18); CARBON DIOXIDE,CO2 22.0 mmol/L (21-32); CHLORIDE,CL 106.0 mmol/L (98-107); CREATININE 2.28 mg/dL (0.70-1.30); EST CRCL DRUG DOSING (CG) 35.57 mL/min; GAMMA GLUTAMYL TRANSFERASE,GGT 42.0 U/L (15-85); GLUCOSE RANDOM 87.0 mg/dL (70-99); PHOSPHORUS 5.1 mg/dL (2.6-4.7); POTASSIUM,K 4.4 mmol/L (3.5-5.1); PROTEIN TOTAL,TP 7.8 g/dL (6.4-8.2); SODIUM,NA 144.0 mmol/L (136-145)
[2025-03-30 07:00] LABS: A/G RATIO 0.39; ESTIMATED GFR 32.0 mL/min (>=60)
[2025-03-30] MEDS ORDERED: NUT TX GLUC INTOL LF SOY PO SCH (09:00)
[2025-03-30] MEDS ORDERED: FIBER PO SCH (09:00)
[2025-03-30] MEDS ORDERED: [UNRECOGNIZED DRUG - OTHER] PO SCH (09:00)
[2025-03-30] MEDS ORDERED: Non-Formulary Medication 1 Each (D-Mannose [Azo D-Mannose] 500 MG Cap) PO SCH (09:00)
[2025-03-30] MEDS ORDERED: CRANBERRY FRUIT EXTRACT 250 MG PO SCH (09:00)
[2025-03-30] MEDS: Oxybutynin 5 MG Tab.ER PO SCH (09:47)
[2025-03-30] MEDS: Cyanocobalamin (Vitamin B12) 1,000 MCG Tab PO SCH (09:52)
[2025-03-30] MEDS: Cholecalciferol (Vitamin D3) 25 MCG Tab PO SCH (09:52)
[2025-03-30] MEDS: Omeprazole 20 MG Cap.CR PO SCH (09:52)
[2025-03-30] MEDS: Saccharomyces Boulardii (Probiotic) 250 MG Cap PO SCH (09:52)
[2025-03-30] MEDS: Miconazole 2% Crm 14 GM Tube TOP SCH (18:06)
[2025-03-31 08:51] LABS: BASOPHILS PERCENT AUTO 0.3 % (0.0-1.0); EOSINOPHILS PERCENT AUTO 8.1 % (1.0-3.0); LYMPHOCYTES PERCENT AUTO 14.5 % (20.5-50.1); MONOCYTES PERCENT AUTO 6.9 % (2-8); NEUTROPHILS PERCENT AUTO 70.2 % (42.2-75.2); PLATELET COUNT,PLT 491 10^3/uL (150-450); RED BLOOD CELL COUNT 3.32 10^6/uL (4.6-6.2); WHITE BLOOD CELL COUNT,WBC 6.2 10^3/uL (5.0-10.0)
[2025-03-31 09:06] LABS: BLOOD UREA NITROGEN,BUN 27.0 mg/dL (7-18); CARBON DIOXIDE,CO2 20.0 mmol/L (21-32); CHLORIDE,CL 110.0 mmol/L (98-107); CREATININE 2.06 mg/dL (0.70-1.30); EST CRCL DRUG DOSING (CG) 39.37 mL/min; GLUCOSE RANDOM 106.0 mg/dL (70-99); POTASSIUM,K 5.0 mmol/L (3.5-5.1); SODIUM,NA 141.0 mmol/L (136-145)
[2025-03-31 09:07] LABS: ESTIMATED GFR 36.0 mL/min (>=60)
[2025-03-31 13:36] LABS: PHOSPHORUS 3.4 mg/dL (2.6-4.7)
[2025-03-31] MEDS: Magnesium Sulfate 2 GM/50 mL 2 GM in Premix Bag 1 BAG IV ONE (13:44)
[2025-03-31] MEDS: MICONAZOLE 2% TOP SCH (21:50)
[2025-04-01 06:04] LABS: BASOPHILS PERCENT AUTO 0.5 % (0.0-1.0); EOSINOPHILS PERCENT AUTO 9.5 % (1.0-3.0); LYMPHOCYTES PERCENT AUTO 16.2 % (20.5-50.1); MONOCYTES PERCENT AUTO 7.8 % (2-8); NEUTROPHILS PERCENT AUTO 66.0 % (42.2-75.2); PLATELET COUNT,PLT 506 10^3/uL (150-450); RED BLOOD CELL COUNT 3.44 10^6/uL (4.6-6.2); WHITE BLOOD CELL COUNT,WBC 5.7 10^3/uL (5.0-10.0)
[2025-04-01 06:18] LABS: BLOOD UREA NITROGEN,BUN 21.0 mg/dL (7-18); CARBON DIOXIDE,CO2 22.0 mmol/L (21-32); CHLORIDE,CL 108.0 mmol/L (98-107); CREATININE 1.82 mg/dL (0.70-1.30); EST CRCL DRUG DOSING (CG) 44.57 mL/min; GLUCOSE RANDOM 76.0 mg/dL (70-99); POTASSIUM,K 5.7 mmol/L (3.5-5.1); SODIUM,NA 138.0 mmol/L (136-145)
[2025-04-01 06:20] LABS: ESTIMATED GFR 42.0 mL/min (>=60)
[2025-04-01] MEDS: Sodium Polystyrene Sulfonate 15 GM/60 ML Susp 60 ML Bot PO ONE (11:31)
[2025-04-01] MEDS: Sennosides/Docusate Sodium 50-8.6 MG Tab PO PRN (21:31)
[2025-04-01] MEDS: Ondansetron 4 MG/2 ML SDV IVPUSH PRN (21:47)
[2025-04-02 06:23] LABS: BASOPHILS PERCENT AUTO 0.5 % (0.0-1.0); EOSINOPHILS PERCENT AUTO 9.9 % (1.0-3.0); LYMPHOCYTES PERCENT AUTO 19.2 % (20.5-50.1); MONOCYTES PERCENT AUTO 7.5 % (2-8); NEUTROPHILS PERCENT AUTO 62.9 % (42.2-75.2); PLATELET COUNT,PLT 465 10^3/uL (150-450); RED BLOOD CELL COUNT 3.82 10^6/uL (4.6-6.2); WHITE BLOOD CELL COUNT,WBC 5.9 10^3/uL (5.0-10.0)
[2025-04-02 06:34] LABS: BLOOD UREA NITROGEN,BUN 24.0 mg/dL (7-18); CARBON DIOXIDE,CO2 22.0 mmol/L (21-32); CHLORIDE,CL 109.0 mmol/L (98-107); CREATININE 1.79 mg/dL (0.70-1.30); EST CRCL DRUG DOSING (CG) 45.31 mL/min; GLUCOSE RANDOM 89.0 mg/dL (70-99); POTASSIUM,K 5.8 mmol/L (3.5-5.1); SODIUM,NA 137.0 mmol/L (136-145)
[2025-04-02 07:04] LABS: ESTIMATED GFR 43.0 mL/min (>=60)
[2025-04-02] MEDS: 25% Dextrose in Water 10 ML Syringe IVPUSH ONE (09:16)
[2025-04-02] MEDS: Insulin Regular, Human 100 Units/ML 10 ML Vial IV ONE ×2 (09:19→18:29)
[2025-04-02] MEDS: Sodium Polystyrene Sulfonate 15 GM/60 ML Susp 60 ML Bot PO SCH (09:21)
[2025-04-02 12:58] LABS: IRON,FE 36.0 ug/dL (65-175); PERCENT FE SATURATION 23.2 % (20.0-50.0)
[2025-04-02 13:25] LABS: FOLIC ACID 8.4 ng/mL (8.6-58.9)
[2025-04-02] MEDS ORDERED: 50% Dextrose in Water 50 ML Syringe IVPUSH PRN (18:02)
[2025-04-02] MEDS: Sodium Polystyrene Sulfonate 15 GM/60 ML Susp 60 ML Bot PO ONE (18:27)
[2025-04-02] MEDS: 50% Dextrose in Water 50 ML Syringe IVPUSH PRN (18:29)
[2025-04-02] MEDS: 50% Dextrose in Water 50 ML Syringe IVPUSH ONE (18:30)
[2025-04-03 06:37] LABS: BASOPHILS PERCENT AUTO 0.5 % (0.0-1.0); EOSINOPHILS PERCENT AUTO 5.6 % (1.0-3.0); LYMPHOCYTES PERCENT AUTO 13.4 % (20.5-50.1); MONOCYTES PERCENT AUTO 7.6 % (2-8); NEUTROPHILS PERCENT AUTO 72.9 % (42.2-75.2); PLATELET COUNT,PLT 455 10^3/uL (150-450); RED BLOOD CELL COUNT 3.95 10^6/uL (4.6-6.2); WHITE BLOOD CELL COUNT,WBC 7.6 10^3/uL (5.0-10.0)
[2025-04-03 07:31] LABS: BLOOD UREA NITROGEN,BUN 25.0 mg/dL (7-18); CARBON DIOXIDE,CO2 23.0 mmol/L (21-32); CHLORIDE,CL 104.0 mmol/L (98-107); CREATININE 1.78 mg/dL (0.70-1.30); EST CRCL DRUG DOSING (CG) 45.57 mL/min; ESTIMATED GFR 43.0 mL/min (>=60); GLUCOSE RANDOM 82.0 mg/dL (70-99); POTASSIUM,K 5.2 mmol/L (3.5-5.1); SODIUM,NA 136.0 mmol/L (136-145)
[2025-04-03 14:34] VITALS: BP 132/77; PULSE 106
== END 2025-04-03 14:50 | DRG 699 ==
LOC: DL.ED 00:56 → DL.MS 03:01
PROVIDERS: ADMIT Internal Medicine; ATTEND Internal Medicine
DX: T83.510A Infection and inflammatory reaction due to cystostomy catheter, initial encounter (principal); E87.20 Acidosis, unspecified; N39.0 Urinary tract infection, site not specified; I50.9 Heart failure, unspecified; G82.20 Paraplegia, unspecified; H54.7 Unspecified visual loss; E11.9 Type 2 diabetes mellitus without complications; E78.00 Pure hypercholesterolemia, unspecified; K21.9 Gastro-esophageal reflux disease without esophagitis; Z79.890 Hormone replacement therapy; F41.9 Anxiety disorder, unspecified; E66.9 Obesity, unspecified; Z88.1 Allergy status to other antibiotic agents; D64.9 Anemia, unspecified; E53.8 Deficiency of other specified B group vitamins; E61.1 Iron deficiency; E86.0 Dehydration; E11.22 Type 2 diabetes mellitus with diabetic chronic kidney disease; N31.2 Flaccid neuropathic bladder, not elsewhere classified; N18.9 Chronic kidney disease, unspecified; E87.5 Hyperkalemia; E83.52 Hypercalcemia; L89.90 Pressure ulcer of unspecified site, unspecified stage; I25.10 Atherosclerotic heart disease of native coronary artery without angina pectoris; E03.9 Hypothyroidism, unspecified; E83.42 Hypomagnesemia; E87.8 Other disorders of electrolyte and fluid balance, not elsewhere classified; Z88.8 Allergy status to other drugs, medicaments and biological substances; Z88.2 Allergy status to sulfonamides; Z79.84 Long term (current) use of oral hypoglycemic drugs; Z79.899 Other long term (current) drug therapy; Z68.23 Body mass index [BMI] 23.0-23.9, adult; Z98.890 Other specified postprocedural states; Z79.01 Long term (current) use of anticoagulants; Z79.82 Long term (current) use of aspirin; Z79.4 Long term (current) use of insulin; Z88.0 Allergy status to penicillin
CPT/HCPCS: 36415; 74176; 80053; 81001; 83605; 83690; 84145; 85025; 87040 ×2; 87086; 96361; 96374; 99285; J0696; J7030; 74018; 80048; 80076; 82272; 82607; 82746; 82947; 82977; 83540; 83550; 83735; 84075; 84100; 84132; 87088; 87186; 93005; 93010; 99223; 99232; 99239; 99284; A9270-GY; J1644; J2185; J2405; J2543; J3371; J3475; J3490; J7050

== ENCOUNTER 2025-04-27 10:55 | Emergency (ER) | payer MEDICARE, MEDICAID ==
[2025-04-27 12:36] VITALS: BP 90/56; PULSE 98
== END 2025-04-27 12:49 | disposition home or self-care (01) ==
LOC: DL.ED 10:55
DX: I95.9 Hypotension, unspecified (principal); E78.00 Pure hypercholesterolemia, unspecified; K21.9 Gastro-esophageal reflux disease without esophagitis; E11.9 Type 2 diabetes mellitus without complications; E03.9 Hypothyroidism, unspecified; Z88.0 Allergy status to penicillin; Z88.2 Allergy status to sulfonamides; Z79.82 Long term (current) use of aspirin; Z79.899 Other long term (current) drug therapy; Z79.84 Long term (current) use of oral hypoglycemic drugs
CPT/HCPCS: 82947; 93005; 93010; 99284; 99285; A9270

== ENCOUNTER 2025-04-28 19:19 | Emergency (ER) | payer MEDICARE, MEDICAID ==
[2025-04-28] MEDS ORDERED: Sodium Chloride 0.9% 10 ML Syringe FLUSH PRN (19:29)
[2025-04-28] MEDS: Ondansetron 4 MG Tab.DIS PO ONE (19:43)
[2025-04-28 20:04] LABS: BASOPHILS PERCENT AUTO 0.1 % (0.0-1.0); EOSINOPHILS PERCENT AUTO 0.1 % (1.0-3.0); LYMPHOCYTES PERCENT AUTO 9.5 % (20.5-50.1); MONOCYTES PERCENT AUTO 8.9 % (2-8); NEUTROPHILS PERCENT AUTO 81.4 % (42.2-75.2); PLATELET COUNT,PLT 272 10^3/uL (150-450); RED BLOOD CELL COUNT 3.70 10^6/uL (4.6-6.2); WHITE BLOOD CELL COUNT,WBC 7.3 10^3/uL (5.0-10.0)
[2025-04-28 20:21] VITALS: PULSE 111
[2025-04-28 20:25] LABS: ALANINE AMINOTRANSFERASE,ALT 21.0 U/L (16-63); ASPARTATE AMNIOTRANSFERASE,AST 29.0 U/L (15-37); BILIRUBIN TOTAL 0.3 mg/dL (0.2-1.0); BLOOD UREA NITROGEN,BUN 58.0 mg/dL (7-18); CARBON DIOXIDE,CO2 22.0 mmol/L (21-32); CREATININE 2.3 mg/dL (0.70-1.30); EST CRCL DRUG DOSING (CG) 33.04 mL/min; GLUCOSE RANDOM 119.0 mg/dL (70-99); PROTEIN TOTAL,TP 9.1 g/dL (6.4-8.2)
[2025-04-28 20:28] LABS: A/G RATIO 0.49; CHLORIDE,CL 98.0 mmol/L (98-107); ESTIMATED GFR 32.0 mL/min (>=60); LACTIC ACID 1.2 mmol/L (0.4-2.0); POTASSIUM,K 4.3 mmol/L (3.5-5.1); SODIUM,NA 132.0 mmol/L (136-145)
[2025-04-28 21:04] LABS: APPEARANCE,URINE TURBID (CLEAR)
[2025-04-28 21:05] LABS: GLUCOSE,URINE NEGATIVE (NEGATIVE); OCCULT BLOOD,URINE LARGE (NEGATIVE)
[2025-04-28 21:20] LABS: EPITHELIAL CELLS,URINE FEW /HPF (NOT SEEN)
[2025-04-28 21:53] VITALS: BP 84/73
[2025-04-28] MEDS: Magnesium Sulfate 2 GM/50 mL 2 GM in Premix Bag 1 BAG IV ONE (22:04)
[2025-04-29] MEDS: Take Home: Ondansetron 4 MG Tab.DIS, 5 Tab Pack PO ONE (00:53)
== END 2025-04-29 01:38 | disposition home or self-care (01) ==
LOC: DL.ED 19:19
DX: N17.9 Acute kidney failure, unspecified (principal); R11.2 Nausea with vomiting, unspecified; E86.0 Dehydration; E83.42 Hypomagnesemia; E87.1 Hypo-osmolality and hyponatremia; K21.9 Gastro-esophageal reflux disease without esophagitis; Z88.0 Allergy status to penicillin; E66.9 Obesity, unspecified; E11.9 Type 2 diabetes mellitus without complications; Z88.1 Allergy status to other antibiotic agents; Z88.2 Allergy status to sulfonamides; Z88.8 Allergy status to other drugs, medicaments and biological substances; Z79.82 Long term (current) use of aspirin; Z79.4 Long term (current) use of insulin; Z79.890 Hormone replacement therapy; Z79.899 Other long term (current) drug therapy; Z68.26 Body mass index [BMI] 26.0-26.9, adult
CPT/HCPCS: 36415; 80053; 81001; 82947; 83605; 83735; 85025; 86140; 87040; 87086; 87088; 87186; 96365; 96375; 99284; A9270; J2765; J3475; J7030; Q0162

== ENCOUNTER 2025-05-14 01:19 | Emergency (ER) | payer MEDICARE, MEDICAID ==
[~2025-05-14 01:19] MED LIST: Sodium Chloride 0.9% 10 ML Syringe FLUSH PRN
[2025-05-14 01:45] LABS: O2 DELIVERY DEVICE NASAL CANNULA
[2025-05-14 01:46] LABS: BASOPHILS PERCENT AUTO 0.1 % (0.0-1.0); EOSINOPHILS PERCENT AUTO 1.3 % (1.0-3.0); LYMPHOCYTES PERCENT AUTO 9.5 % (20.5-50.1); MONOCYTES PERCENT AUTO 6.8 % (2-8); NEUTROPHILS PERCENT AUTO 82.3 % (42.2-75.2); PLATELET COUNT,PLT 483 10^3/uL (150-450); RED BLOOD CELL COUNT 3.19 10^6/uL (4.6-6.2); WHITE BLOOD CELL COUNT,WBC 10.1 10^3/uL (5.0-10.0)
[2025-05-14 01:53] LABS: O2 SATURATION VENOUS 54.0 % (60-80); PCO2 VENOUS 51 mmHg (41-51); PH,VENOUS 7.41 (7.31-7.41); PO2 VENOUS 41 mmHg (35-42)
[2025-05-14 01:54] LABS: BASE EXCESS VENOUS 6.5 mmol/l ((-2)-(+3)); BICARBONATE,VENOUS 32 mmol/l (19-25)
[2025-05-14 02:10] LABS: INR 1.0 (0.9-1.2); LACTIC ACID 1.1 mmol/L (0.4-2.0); PTT,PARTIAL THROMBOPLSTIN TIME 27.3 SEC (22.0-34.0)
[2025-05-14 02:20] LABS: ALANINE AMINOTRANSFERASE,ALT 18 U/L (16-63); ASPARTATE AMNIOTRANSFERASE,AST 17 U/L (15-37); BILIRUBIN TOTAL 0.4 mg/dL (0.2-1.0); BLOOD UREA NITROGEN,BUN 28 mg/dL (7-18); CARBON DIOXIDE,CO2 32 mmol/L (21-32); CHLORIDE,CL 95 mmol/L (98-107); CREATININE 2.41 mg/dL (0.70-1.30); GLUCOSE RANDOM 89 mg/dL (70-99); POTASSIUM,K 3.8 mmol/L (3.5-5.1); PROTEIN TOTAL,TP 8.8 g/dL (6.4-8.2)
[2025-05-14 02:29] LABS: A/G RATIO 0.42; ESTIMATED GFR 30 mL/min (>=60); SODIUM,NA 135 mmol/L (136-145)
[2025-05-14 02:44] LABS: APPEARANCE,URINE TURBID (CLEAR); GLUCOSE,URINE NEGATIVE (NEGATIVE); OCCULT BLOOD,URINE MODERATE (NEGATIVE)
[2025-05-14 02:56] LABS: EPITHELIAL CELLS,URINE FEW /HPF (NOT SEEN); YEAST,URINE FEW /HPF (NOT SEEN)
[2025-05-14 04:21] VITALS: BP 91/64; PULSE 114
== END 2025-05-14 03:37 | disposition home or self-care (01) ==
LOC: DL.ED 01:19
DX: T83.511A Infection and inflammatory reaction due to indwelling urethral catheter, initial encounter (principal); E78.00 Pure hypercholesterolemia, unspecified; K21.9 Gastro-esophageal reflux disease without esophagitis; E11.9 Type 2 diabetes mellitus without complications; E03.9 Hypothyroidism, unspecified; Z79.899 Other long term (current) drug therapy; Z79.82 Long term (current) use of aspirin; Z79.84 Long term (current) use of oral hypoglycemic drugs; Z88.0 Allergy status to penicillin; Z88.2 Allergy status to sulfonamides; Z88.8 Allergy status to other drugs, medicaments and biological substances
CPT/HCPCS: 36415; 71045; 80053; 81001; 82803; 83605; 83735; 83880; 84145; 84484; 85025; 85610; 85730; 86140; 87040; 87086; 87088; 87186; 99284; 99285; A9270-GY

== ENCOUNTER 2025-05-16 09:38 | Emergency (ER) | payer MEDICARE, MEDICAID ==
[2025-05-16 10:21] VITALS: BP 95/70; PULSE 97
== END 2025-05-16 10:30 | disposition home or self-care (01) ==
LOC: DL.ED 09:38
DX: I95.9 Hypotension, unspecified (principal); E78.00 Pure hypercholesterolemia, unspecified; K21.9 Gastro-esophageal reflux disease without esophagitis; E11.9 Type 2 diabetes mellitus without complications; E03.9 Hypothyroidism, unspecified; Z88.0 Allergy status to penicillin; Z88.2 Allergy status to sulfonamides; Z88.8 Allergy status to other drugs, medicaments and biological substances; Z79.82 Long term (current) use of aspirin; Z79.84 Long term (current) use of oral hypoglycemic drugs; Z79.899 Other long term (current) drug therapy; Z79.4 Long term (current) use of insulin
CPT/HCPCS: 99283; 99284

== ENCOUNTER 2025-05-17 17:52 | Emergency (ER) | payer MEDICARE, MEDICAID ==
[2025-05-17] MEDS ORDERED: Sodium Chloride 0.9% 10 ML Syringe FLUSH PRN (18:14)
[2025-05-17 18:44] LABS: BASOPHILS PERCENT AUTO 0.3 % (0.0-1.0); EOSINOPHILS PERCENT AUTO 2.3 % (1.0-3.0); LYMPHOCYTES PERCENT AUTO 11.1 % (20.5-50.1); MONOCYTES PERCENT AUTO 8.5 % (2-8); NEUTROPHILS PERCENT AUTO 77.8 % (42.2-75.2); PLATELET COUNT,PLT 412 10^3/uL (150-450); RED BLOOD CELL COUNT 2.81 10^6/uL (4.6-6.2); WHITE BLOOD CELL COUNT,WBC 7.7 10^3/uL (5.0-10.0)
[2025-05-17] MEDS: Lactated Ringers 2,000 ML IV SCH (18:50)
[2025-05-17 19:01] LABS: ALANINE AMINOTRANSFERASE,ALT 16 U/L (16-63); ASPARTATE AMNIOTRANSFERASE,AST 25 U/L (15-37); BILIRUBIN TOTAL 0.3 mg/dL (0.2-1.0); BLOOD UREA NITROGEN,BUN 27 mg/dL (7-18); CARBON DIOXIDE,CO2 33 mmol/L (21-32); CHLORIDE,CL 93 mmol/L (98-107); CREATININE 2.24 mg/dL (0.70-1.30); GLUCOSE RANDOM 102 mg/dL (70-99); POTASSIUM,K 3.5 mmol/L (3.5-5.1); PROTEIN TOTAL,TP 7.7 g/dL (6.4-8.2); SODIUM,NA 134 mmol/L (136-145)
[2025-05-17 19:05] LABS: A/G RATIO 0.35; ESTIMATED GFR 33 mL/min (>=60)
[2025-05-17 19:06] LABS: LACTIC ACID 1.1 mmol/L (0.4-2.0)
[2025-05-17] MEDS: Iopamidol 612 MG/ML 100 ML Bottle IVPUSH ONE (19:36)
[2025-05-17 20:58] LABS: APPEARANCE,URINE CLOUDY (CLEAR)
[2025-05-17 20:59] LABS: GLUCOSE,URINE NEGATIVE (NEGATIVE); OCCULT BLOOD,URINE MODERATE (NEGATIVE)
[2025-05-17 21:12] LABS: EPITHELIAL CELLS,URINE RARE /HPF (NOT SEEN)
[2025-05-18 08:03] VITALS: BP 97/61; PULSE 81
== END 2025-05-18 08:00 | disposition home or self-care (01) ==
LOC: DL.ED 17:52
DX: A04.72 Enterocolitis due to Clostridium difficile, not specified as recurrent (principal); I95.9 Hypotension, unspecified; T83.510A Infection and inflammatory reaction due to cystostomy catheter, initial encounter; K21.9 Gastro-esophageal reflux disease without esophagitis; E78.00 Pure hypercholesterolemia, unspecified; E11.9 Type 2 diabetes mellitus without complications; E03.9 Hypothyroidism, unspecified; Z88.0 Allergy status to penicillin; Z79.82 Long term (current) use of aspirin; Z88.2 Allergy status to sulfonamides; Z88.8 Allergy status to other drugs, medicaments and biological substances; Z88.6 Allergy status to analgesic agent; Z79.899 Other long term (current) drug therapy; Z79.4 Long term (current) use of insulin; Z79.890 Hormone replacement therapy; Z79.84 Long term (current) use of oral hypoglycemic drugs
CPT/HCPCS: 36415; 71045; 74177; 80053; 81001; 83605; 84145; 84484; 85025; 86140; 87040; 87086; 87088; 87186; 96361; 96365; 99284; 99285; A9270; J0692; J7030; J7120; Q9967

== ENCOUNTER 2025-05-27 22:51 | Emergency (ER) | payer MEDICARE, MEDICAID ==
[2025-05-27 23:20] LABS: BASOPHILS PERCENT AUTO 0.3 % (0.0-1.0); EOSINOPHILS PERCENT AUTO 1.8 % (1.0-3.0); LYMPHOCYTES PERCENT AUTO 9.1 % (20.5-50.1); MONOCYTES PERCENT AUTO 5.9 % (2-8); NEUTROPHILS PERCENT AUTO 82.9 % (42.2-75.2); PLATELET COUNT,PLT 597 10^3/uL (150-450); RED BLOOD CELL COUNT 2.65 10^6/uL (4.6-6.2); WHITE BLOOD CELL COUNT,WBC 9.4 10^3/uL (5.0-10.0)
[2025-05-27 23:45] LABS: A/G RATIO 0.38; ALANINE AMINOTRANSFERASE,ALT 10.0 U/L (16-63); ASPARTATE AMNIOTRANSFERASE,AST 15.0 U/L (15-37); BILIRUBIN TOTAL 0.2 mg/dL (0.2-1.0); BLOOD UREA NITROGEN,BUN 18.0 mg/dL (7-18); CARBON DIOXIDE,CO2 22.0 mmol/L (21-32); CHLORIDE,CL 105.0 mmol/L (98-107); CREATININE 1.73 mg/dL (0.70-1.30); EST CRCL DRUG DOSING (CG) 35.07 mL/min; ESTIMATED GFR 45.0 mL/min (>=60); GLUCOSE RANDOM 105.0 mg/dL (70-99); POTASSIUM,K 5.3 mmol/L (3.5-5.1); PROTEIN TOTAL,TP 8.0 g/dL (6.4-8.2); SODIUM,NA 139.0 mmol/L (136-145)
[2025-05-27 23:47] LABS: LACTIC ACID 1.4 mmol/L (0.4-2.0)
[2025-05-27 23:49] LABS: GLUCOSE,URINE NEGATIVE (NEGATIVE); OCCULT BLOOD,URINE LARGE (NEGATIVE)
[2025-05-27 23:50] LABS: APPEARANCE,URINE CLOUDY (CLEAR)
[2025-05-27] MEDS: Magnesium Sulfate 2 GM/50 mL 2 GM in Premix Bag 1 BAG IV ONE (23:54)
[2025-05-27 23:57] LABS: EPITHELIAL CELLS,URINE RARE /HPF (NOT SEEN)
[2025-05-28 02:45] VITALS: BP 98/56; PULSE 95
== END 2025-05-28 02:41 ==
LOC: DL.ED 22:51
DX: I95.9 Hypotension, unspecified (principal); T83.511A Infection and inflammatory reaction due to indwelling urethral catheter, initial encounter; N39.0 Urinary tract infection, site not specified; D50.9 Iron deficiency anemia, unspecified; E78.00 Pure hypercholesterolemia, unspecified; K21.9 Gastro-esophageal reflux disease without esophagitis; E11.9 Type 2 diabetes mellitus without complications; E03.9 Hypothyroidism, unspecified; Z88.0 Allergy status to penicillin; Z88.2 Allergy status to sulfonamides; Z88.8 Allergy status to other drugs, medicaments and biological substances; Z79.4 Long term (current) use of insulin; Z79.84 Long term (current) use of oral hypoglycemic drugs; Z79.82 Long term (current) use of aspirin; Z79.890 Hormone replacement therapy
CPT/HCPCS: 36415; 71045; 74176; 80053; 81001; 83605; 83690; 83735; 84484; 85025; 87040; 87086; 93005; 93010; 96361; 96365; 99285; 99291; J3475; J7030